=== PATIENT | female | born 1995 | race Caucasian/White ===

== ENCOUNTER 2019-03-17 09:33 | Emergency (ER) | payer OTHER ==
[~2019-03-17] VITALS: Ht 166.4 cm; Wt 100.0 kg
[~2019-03-17 09:33] MED LIST: AMOXICILLIN500 MG PO; AMOXICILLIN875 MG PO; BACTRIM DS1 TAB PO; BENADRY2 EX; FLONASE NASAL50 MCG; IBUPROFEN600 MG PO; LORTAB5 PO; MUCINEX600 MG PO; PRE-NATAL PO
[2019-03-17 10:24] LABS: IMMATURE GRANULOCYTES 0.3 % (0.0-5.0); MEAN CORPUSCULAR HGB 27.5 pG CALC (26.0-32.0); NEUT# 5.34 thou/uL (2.00-7.15); RED BLOOD COUNT 4.95 mill/uL (4.20-5.60); RED CELL DISTRI WIDTH 11.9 % (11.5-15.5)
[2019-03-17 10:28] LABS: ALBUMIN 4.5 g/dL (3.2-5.0); ALKALINE PHOSPHATASE 81 u/l (38-126); ANION GAP 12 (6-22 (CALC)); BILIRUBIN, TOTAL 0.4 mg/dL (0.0-1.4); BUN 14 mg/dL (7-17); BUN/CREATININE RATIO 16 (12-20 (CALC)); CARBON DIOXIDE 25 mmol/l (22-30); CHLORIDE 105 mmol/l (95-108); CREATININE 0.9 mg/dL (0.5-1.0); GFR > 60 ML/MIN (>=60 (CALC)); GFR FOR AFR.AMER. > 60 ML/MIN (>=60 (CALC)); LIPASE 50 u/l (23-300); POTASSIUM 4.3 mmol/l (3.5-5.1); SGOT/AST 22 u/l (14-36); SODIUM 138 mmol/l (137-146); TOTAL PROTEIN 7.8 g/dL (6.3-8.2)
[2019-03-17 10:34] LABS: URINE BILIRUBIN - DIPSTICK NEGATIVE (NEGATIVE); URINE BLOOD DIPSTICK LARGE (NEGATIVE); URINE COLOR YELLOW; URINE GLUCOSE - DIPSTICK NEGATIVE (NEGATIVE); URINE KETONE NEGATIVE (NEGATIVE); URINE LEUK ESTERASE NEGATIVE (NEGATIVE); URINE NITRITE - DIPSTICK NEGATIVE (Negative); URINE PROTEIN - DIPSTICK NEGATIVE (NEG-TRACE); URINE UROBILINOGEN - DIPSTICK 0.2 E.U./dL (0.2)
[2019-03-17 10:35] LABS: URINE RBC 25-50 RBC/hpf (0-5)
[2019-03-17 10:36] LABS: HEMATOCRIT 42.5 % (37.0-47.0); HEMOGLOBIN 13.6 g/dl (12.0-16.0); MEAN CELL VOLUME 85.9 fL CALC (80.0-100.0)
[2019-03-17 11:50] VITALS: BP 99/56
== END 2019-03-17 12:25 | disposition home or self-care (01) ==
LOC: ED 09:33
PROVIDERS: Family Medicine
DX: R31.9 Hematuria, unspecified (principal); R10.32 Left lower quadrant pain; R11.2 Nausea with vomiting, unspecified
CPT/HCPCS: Q9967

== ENCOUNTER 2019-06-10 | Emergency (ER) | payer OTHER ==
[2019-06-10 15:47] LABS: URINE BILIRUBIN - DIPSTICK NEGATIVE (NEGATIVE); URINE BLOOD DIPSTICK TRACE-INTACT (NEGATIVE); URINE COLOR YELLOW; URINE GLUCOSE - DIPSTICK NEGATIVE (NEGATIVE); URINE KETONE NEGATIVE (NEGATIVE); URINE NITRITE - DIPSTICK NEGATIVE (Negative); URINE PH 5.5 (4.5-8.0); URINE PROTEIN - DIPSTICK NEGATIVE (NEG-TRACE); URINE SPECIFIC GRAVITY 1.025; URINE UROBILINOGEN - DIPSTICK 0.2 E.U./dL (0.2)
[2019-06-10 16:10] LABS: URINE LEUK ESTERASE SMALL (NEGATIVE)
[2019-06-10 16:11] LABS: URINE SQUAMOUS EPITHELIAL CELL MODERATE EPI/hpf (0-FEW)
[2019-06-10] MEDS ORDERED: CEPHALEXIN500 M1 PO (16:21)
== END 2019-06-10 16:35 | disposition home or self-care (01) ==
PROVIDERS: Emergency Medicine
DX: J06.9 Acute upper respiratory infection, unspecified (principal); N39.0 Urinary tract infection, site not specified

== ENCOUNTER 2020-12-29 17:35 | Emergency (ER) | payer OTHER ==
[~2020-12-29] VITALS: Ht 167.6 cm; Wt 105.0 kg
[~2020-12-29 17:35] MED LIST changes: +CEPHALEXIN500 M1 PO
[2020-12-29] MEDS ORDERED: ONDANSETRON ODT8 MG PO (19:37)
[2020-12-29] MEDS ORDERED: DECADRON4 MG PO (19:37)
[2020-12-29] MEDS ORDERED: ZPAK PO (19:37)
[2020-12-29 20:10] VITALS: BP 118/67
== END 2020-12-29 20:19 | disposition home or self-care (01) ==
LOC: ED 17:35
DX: U07.1 COVID-19 (principal)